=== PATIENT | male | born 1965 | race Caucasian/White ===

== ENCOUNTER 2018-05-16 20:20 | Inpatient (IN) | END 2018-05-18 16:25 | disposition home or self-care (01) | DRG 556 ==

== ENCOUNTER 2018-05-29 23:12 | Inpatient (IN) | END 2018-05-31 09:25 | disposition left against medical advice (07) | DRG 605 ==

== ENCOUNTER 2019-03-06 22:59 | Emergency (ER) | payer OTHER ==
[~2019-03-06] VITALS: Ht 175.3 cm; Wt 79.5 kg
[~2019-03-06 22:59] MED LIST: CLIN300C10 PO; METH10SO PO
[2019-03-06 23:05] VITALS: Ht 175.3 cm; Wt 79.5 kg
--- NOTE | 2019-03-06 23:11 | ERD ---
ER Documentation Chief Complaint Chief Complaint [id number],from [facility],?seizure HPI The patient is a 53-year-old male, presenting to the ER because of possible seizure about 15 minutes prior to arrival, lasted for 1 minute according to nursing staff. The patient was awake and not postictal, denies having had a seizure. He denies headache, neck pain, chest pain, dyspnea, abdominal pain, vomiting, dysuria, diarrhea. He takes Keppra 500 mg twice a day for seizure. He does not smoke nor drink Past medical history: Epilepsy, hypertension, history of CVA with right hemiparesis, depression, anxiety, history of subdural hematoma, hypertension, GERD, chronic pain Past surgical history: Craniotomy ROS All systems reviewed and are negative except as per history of present illness. Medications Home Meds Active Scripts Clindamycin Hcl* (Clindamycin Hcl*) 300 Mg Capsule, 300 MG PO TID for 10 Days, CAP Prov:JAGUAR BRYANT DO 06/19/18 Reported Medications Methadone Hcl* (Methadone Hcl*) 10 Mg/5 Ml Solution, 75 MG PO DAILY, 05/16/18 Allergies Allergies: Coded Allergies: No Known Drug Allergies (Verified Allergy, Unknown, 06/19/18) PMhx/Soc History of Surgery: Yes (hernia surgery 1989, screw in leg october 2017) Anesthesia Reaction: No Hx Neurological Disorder: No Hx Respiratory Disorders: No Hx Cardiac Disorders: No Hx Psychiatric Problems: Yes (Depression, anxiety) Hx Miscellaneous Medical Probl: No Hx Alcohol Use: Yes Hx Substance Use: Yes Hx Tobacco Use: Yes Physical Exam Vitals Vital Signs Date Temp Pulse Resp B/P (MAP) Pulse Ox O2 O2 Flow FiO2 Time Delivery Rate 03/07/19 81 16 116/89 99 Room Air 04:56 (98) 03/07/19 92 18 117/68 93 Room Air 01:20 (84) 03/06/19 Nasal 3 23:21 Cannula 03/06/19 100.7 103 16 141/85 97 Nasal 23:21 (103) Cannula 03/06/19 100.7 107 16 141/85 93 23:05 (103) Physical Exam Const: No acute distress. Head: Atraumatic. Eyes: Normal Conjunctiva. ENT: Normal External Ears, Nose and Mouth. Neck: Full range of motion. No meningismus. Resp: Clear to auscultation bilaterally. Cardio: Regular rate and rhythm. Abd: Soft, non distended, normal bowel sounds, non tender. Skin: No petechiae or rashes. Back: No midline or flank tenderness. Ext: No cyanosis, or edema. Neur: Awake and alert. left Hemiplegia Psych: Normal Mood and Affect. Result Diagram: 03/06/19 2318 03/06/19 2318 Results 24 hrs Laboratory Tests Test 03/06/19 23:18 03/06/19 23:20 03/07/19 01:16 White Blood Count 10.5 10^3/ul Red Blood Count 4.65 10^6/ul Hemoglobin 13.9 g/dl Hematocrit 42.7 % Mean Corpuscular Volume 91.8 fl Mean Corpuscular Hemoglobin 29.9 pg Mean Corpuscular 32.6 g/dl Hemoglobin Concent Red Cell Distribution Width 14.5 % Platelet Count 264 10^3/UL Mean Platelet Volume 10.7 fl Immature Granulocytes % 0.900 % Neutrophils % 45.3 % Lymphocytes % 39.4 % Monocytes % 10.7 % Eosinophils % 2.5 % Basophils % 1.2 % Nucleated Red Blood Cells % 0.0 /100WBC Immature Granulocytes # 0.090 10^3/ul Neutrophils # 4.8 10^3/ul Lymphocytes # 4.2 10^3/ul Monocytes # 1.1 10^3/ul Eosinophils # 0.3 10^3/ul Basophils # 0.1 10^3/ul Nucleated Red Blood Cells # 0.0 10^3/ul Prothrombin Time 13.8 Sec Prothrombin Time Ratio 1.1 INR International Normalized Ratio 1.05 Activated Partial Thromboplast 27.5 Sec Time Sodium Level 143 mmol/L Potassium Level 3.6 mmol/L Chloride Level 107 mmol/L Carbon Dioxide Level 25 mmol/L Anion Gap 11 Blood Urea Nitrogen 21 mg/dl Creatinine 0.78 mg/dl Est Glomerular Filtrat Rate mL/min > 60 mL/min Glucose Level 115 mg/dl Calcium Level 9.3 mg/dl Total Bilirubin 0.4 mg/dl Direct Bilirubin 0.00 mg/dl Indirect Bilirubin 0.4 mg/dl Aspartate Amino Transf (AST/SGOT) 91 IU/L Alanine 161 IU/L Aminotransferase (ALT/SGPT) Alkaline Phosphatase 108 IU/L Troponin I < 0.012 ng/ml Total Protein 8.3 g/dl Albumin 4.4 g/dl Globulin 3.90 g/dl Albumin/Globulin Ratio 1.12 POC Venous Lactate 1.3 mmol/L Lactic Acid Level 0.9 mmol/L Current Medications Medications Dose Sig/Olivia Start Time Status Last (Trade) Ordered Route PRN Stop Time Admin Dose Reason Admin 100 ml @ ONCE ONCE 03/07/19 DC 03/06/19 Levetiracetam 400 mls/hr IVPB 00:00 23:44 03/07/19 00:14 Procedures/MDM [place] [address] Radiology Main Line: [phone] DIAGNOSTIC IMAGING REPORT Patient: SHADI ESTRELLA : 1965 Age: 53 Sex: M MR #: [id number] DOS: 03/06/19 2335 Ordering MD: GENA WRIGHT MD Location: E/R Room/Bed: PROCEDURE: CT BRAIN WITHOUT CONTRAST CLINICAL INDICATION: 53-year-old male with seizure. TECHNIQUE: The study was performed utilizing [place] VCT 64-slice CT scanner. Direct axial sections were obtained from the foramen magnum to the vertex without the use of intravenous contrast material. Sagittal and coronal reformations were obtained. The study was repeated secondary to motion artifact. One or more the following dose reduction techniques were utilized: automated exposure control, adjustment of the mA and/or kV according to patient's size and/or use of iterative reconstruction technique. DICOM images are available. The images were viewed on a PACS workstation. CTD/vol = 79.28 mGy; Total Exam DLP = 1268.46 mGy.cm. COMPARISON: CT brain July 04, 2018. FINDINGS: The patient has had a prior right frontoparietal craniotomy. There is underlying diffuse extra-axial increased density measuring approximately 3 mm in greatest thickness most consistent with an underlying capsular formation or dural thickening. There has been interval resolution of the previously identified subdural fluid collection. There is mild prominence of the sulci and cisternal spaces consistent with diffuse volume loss and compensatory ventricular enlargement. There is prominence of the lateral ventricles. There is no evidence for midline shift. There is no evidence for acute intra or extra-axial blood. There is a deformity within the left nasal bones from prior fracture. There is a defect within the left lamina papyracea from prior medial blowout fracture. There is mild mucosal thickening within the ethmoid air cells bilaterally. No air-fluid levels are noted. The right mastoid air cells are carotic from prior mastoid disease. The left mastoid air cells are unremarkable. IMPRESSION: 1. Status post right frontoparietal craniotomy with underlying diffuse dural thickening and/or capsular formation. 2. Mild diffuse volume loss. 3. Old left lamina papyracea fracture deformity. 4. Old left nasal bone fracture deformities. 5. Mild mucosal thickening ethmoid air cells. .Todd Redd MD, Date Time Electronically viewed and signed by .Todd Redd MD, on 03/07/2019 01:59 .M/ CC: GENA WRIGHT MD [id number] [place] [address] Radiology Main Line: [phone] DIAGNOSTIC IMAGING REPORT Patient: SHADI ESTRELLA : 1965 Age: 53 Sex: M MR #: [id number] DOS: 03/06/19 2311 Ordering MD: GENA WRIGHT MD Location: E/R Room/Bed: PROCEDURE: XR Chest. CLINICAL INDICATION: Shortness of breath. Possible sepsis TECHNIQUE: Single portable view of the chest was obtained COMPARISON: CR CHEST 07/06/2018; CR CHEST 07/05/2018; CR CHEST 07/04/2018; SD DX CHEST 07/18/2015 FINDINGS: The trachea is midline. The cardiac silhouette is enlarged and pulmonary vascularity are within normal limits. The lungs are clear. The costophrenic angles are sharp. IMPRESSION: 1. Cardiomegaly. No evidence of acute cardiopulmonary disease. RPTAT: AAPP Jason Lue, Physician Date Time Electronically viewed and signed by Apollo Hassan Physician on 03/06/2019 23:37 JL/ CC: GENA WRIGHT MD [id number] EKG: Read by emergency physician Rate/Rhythm: Sinus tachycardia 101 beats/min QRS, ST, T-waves: No ST elevation, no T inversion, artifacts Impression: Abnormal EKG MEDICAL MAKING DECISION: The patient is a 53-year-old male, presenting with acute recurrent seizure He was treated with Keppra 500 mg IV in the ER for recurrent seizure with good response. He is unable to provide urine specimen but declined to straight catheter for urinalysis The differential diagnoses considered include but are not limited to medical noncompliance, anxiety attack, panic attack, UTI, pneumonia Departure Diagnosis: Primary Impression: Recurrent seizures Condition: Good Comments I discussed the findings with the patient. I advised the patient to follow-up with the primary physician in about 2-3 days, sooner if needed and return if any concern. Disclaimer: Inadvertent spelling and grammatical errors are likely due to EHR/dictation software use and do not reflect on the overall quality of patient care. Also, please note that the electronic time recorded on this note does not necessarily reflect the actual time of the patient encounter. GENA WRIGHT MD March 06, 2019 23:11
[2019-03-07] MEDS ORDERED: LEVETIRACETAM 500 MG (PMX) 100 ML IVPB ONE
[2019-03-07 04:56] VITALS: BP 116/89; PULSE 81; RESP 16
== END 2019-03-07 04:57 | disposition home or self-care (01) ==
LOC: E/R 22:59
DX: G40.909 Epilepsy, unspecified, not intractable, without status epilepticus (principal); R06.02 Shortness of breath; Z87.891 Personal history of nicotine dependence
CPT/HCPCS: 36415; 70450; 71045; 80053; 83605; 84484; 85025; 85610; 85730; 87040; 93005; 96374; J1953; Z7502